=== PATIENT | female | born 1990 | race Two or more races ===

== ENCOUNTER → 2018-08-14 | Outpatient (CLI) | payer MEDICAID | LOC: FIMAGING 11:50 | PROVIDERS: ATTEND Obstetrics & Gynecology | DX: O09.292 Supervision of pregnancy with other poor reproductive or obstetric history, second trimester (principal); O99.332 Smoking (tobacco) complicating pregnancy, second trimester; Z3A.19 19 weeks gestation of pregnancy ==

== ENCOUNTER → 2018-11-02 | Outpatient (CLI) | payer MEDICAID | LOC: FIMAGING 09:50 | PROVIDERS: ATTEND Obstetrics & Gynecology | DX: Z36.4 Encounter for antenatal screening for fetal growth retardation (principal); Z3A.30 30 weeks gestation of pregnancy ==